=== PATIENT | female | born 1980 | race Caucasian/White ===

== ENCOUNTER → 2020-01-13 | Outpatient (CLI) | payer BC ==
[2012-09-25 21:31] VITALS: BP 110/66
[~2020-01-13] MED LIST: ALAVERT10 M1 PO
== END ==
LOC: LAB 18:18
DX: J22 Unspecified acute lower respiratory infection (principal); Z87.09 Personal history of other diseases of the respiratory system

== ENCOUNTER → 2020-07-26 | Outpatient (CLI) | payer BC ==
[2012-09-25 21:31] VITALS: BP 110/66
[2020-07-27 19:15] LABS: IMMUNOGLOBULIN E, TOTAL <20 IU/mL (0-100)
== END ==
LOC: LAB 16:24
PROVIDERS: Physician Assistant
DX: J30.9 Allergic rhinitis, unspecified (principal)

== ENCOUNTER → 2021-08-21 | Outpatient (CLI) | payer BC | LOC: LAB 11:02 | DX: R05.1 Acute cough (principal); Z20.822 Contact with and (suspected) exposure to COVID-19 ==

== ENCOUNTER → 2021-10-04 | Outpatient (CLI) | payer BC | LOC: LAB 17:10 | DX: U07.1 COVID-19 (principal) ==

== ENCOUNTER → 2022-03-13 | Outpatient (CLI) | payer BC | LOC: LAB 11:28 | DX: U07.1 COVID-19 (principal) ==

== ENCOUNTER → 2022-11-02 | Outpatient (CLI) | payer BC ==
[2022-11-02 12:22] LABS: HEMATOCRIT 33.4 % (37.0-47.0); HEMOGLOBIN 9.6 g/dL (12.5-16.0); RED BLOOD COUNT 4.86 M/mm3 (4.10-5.30); RED CELL DISTRIBUTION WIDTH 17.1 % (11.5-14.5)
[2022-11-02 12:34] LABS: ALBUMIN 4.6 g/dL (3.5-5.0); POTASSIUM 3.7 mmol/L (3.5-5.1)
[2022-11-02 12:36] LABS: CALCIUM 10.1 mg/dL (8.3-10.5)
[2022-11-02 12:37] LABS: TOTAL PROTEIN 8.4 g/dL (6.4-8.3)
[2022-11-02 12:39] LABS: TOTAL BILIRUBIN 0.3 mg/dL (0.2-1.2)
== END ==
LOC: LAB 12:06
PROVIDERS: Family Medicine
DX: I10 Essential (primary) hypertension (principal); D50.9 Iron deficiency anemia, unspecified; R53.83 Other fatigue; R00.0 Tachycardia, unspecified

== ENCOUNTER → 2022-12-05 | Outpatient (CLI) | payer BC ==
[2022-12-05 09:44] LABS: HEMATOCRIT 38.9 % (37.0-47.0); HEMOGLOBIN 11.9 g/dL (12.5-16.0)
== END ==
LOC: MAMMO 08:58
PROVIDERS: Obstetrics & Gynecology
DX: Z12.31 Encounter for screening mammogram for malignant neoplasm of breast (principal); D50.9 Iron deficiency anemia, unspecified

== ENCOUNTER → 2023-05-17 | Outpatient (CLI) | payer BC | LOC: LAB 13:39 | DX: M79.671 Pain in right foot (principal) ==

== ENCOUNTER → 2024-03-02 | Outpatient (CLI) | payer BC | LOC: MAMMO 13:24 | DX: Z12.31 Encounter for screening mammogram for malignant neoplasm of breast (principal) ==